=== PATIENT | female | born 1995 | race African-American/Black ===

== ENCOUNTER 2019-08-09 14:56 | Emergency (ER) | payer BC, OTHER ==
[~2019-08-09] VITALS: Ht 172.7 cm; Wt 117.9 kg
[2019-08-09 16:03] LABS: ABSOLUTE NEUTROPHILS 3.7 thou/uL (1.4-8.2); BASOPHILS 0.5 % (0.0-2.0); HEMATOCRIT 35.6 % (37.0-47.0); HEMOGLOBIN 11.3 gm/dL (12.0-15.0); LYMPHOCYTES 27.5 % (24.0-44.0); MCH 24.3 pg (26.0-34.0); MCHC 31.6 g/dL (28.0-37.0); MCV 76.7 fL (80.0-100.0); MONOCYTES 8.9 % (1.0-8.0); PLATELET COUNT 267 thou/uL (150-400); POLYS 62.1 % (36.0-66.0); RBC 4.64 mil/uL (4.20-5.00); RDW 16.9 % (10.5-14.5); WBC 5.9 thou/uL (4.0-11.0)
[2019-08-09 16:11] LABS: CALCIUM 8.6 mg/dL (8.5-10.1); CREATININE 0.7 mg/dL (0.6-1.0); POTASSIUM 3.5 mmol/L (3.5-5.1)
[2019-08-09 16:17] LABS: ALBUMIN 3.4 g/dL (3.4-5.0); TOTAL BILIRUBIN 0.9 mg/dL (<0.1-1.0); TOTAL PROTEIN 7.4 g/dL (6.4-8.2)
[2019-08-09] MEDS ORDERED: ZOFRAN ODT4 MG PO (16:45)
[2019-08-09] MEDS ORDERED: NORCO 5-325 TA1 EAC1 PO (16:45)
[2019-08-09 17:05] VITALS: BP 117/69
--- NOTE | 2019-08-11 09:07 | EKG ---
[place] [address] [facility] [address] ELECTROCARDIOGRAM REPORT Name: NAZARIO KO 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
== END 2019-08-09 17:06 | disposition home or self-care (01) ==
LOC: ER 14:56
PROVIDERS: Emergency Medicine
DX: K80.80 Other cholelithiasis without obstruction (principal); J45.909 Unspecified asthma, uncomplicated; Z91.018 Allergy to other foods